=== PATIENT | male | born 1975 | race Caucasian/White ===

== ENCOUNTER 2018-05-01 05:51 | Emergency (ER) | payer OTHER | END 2018-05-01 07:18 | disposition home or self-care (01) | LOC: FTE 05:51 | DX: H60.91 Unspecified otitis externa, right ear (principal); R10.9 Unspecified abdominal pain; F17.210 Nicotine dependence, cigarettes, uncomplicated; Z79.82 Long term (current) use of aspirin | CPT/HCPCS: 99283; Z7502 ==

== ENCOUNTER 2018-05-02 09:15 | Emergency (ER) | payer OTHER ==
[2018-05-02] MEDS: KETOROLAC 30 MG INJ IM (10:13)
== END 2018-05-02 11:25 | disposition home or self-care (01) ==
LOC: FTE 09:15
DX: H60.501 Unspecified acute noninfective otitis externa, right ear (principal); Z79.82 Long term (current) use of aspirin
CPT/HCPCS: 96372; 99284-25

== ENCOUNTER 2018-09-27 18:28 | Emergency (ER) | payer SELFPAY, OTHER ==
[2018-09-27] MEDS ORDERED: BACITRACIN 0.9 GM OINT (23:05)
== END 2018-09-27 19:15 | disposition left against medical advice (07) ==
LOC: FTE 19:15
DX: Z53.21 Procedure and treatment not carried out due to patient leaving prior to being seen by health care provider (principal)

== ENCOUNTER 2018-11-02 19:19 | Emergency (ER) | payer OTHER | END 2018-11-03 02:18 | disposition home or self-care (01) | LOC: FTE 19:19 | DX: H60.501 Unspecified acute noninfective otitis externa, right ear (principal); Z79.82 Long term (current) use of aspirin | CPT/HCPCS: 99283 ==

== ENCOUNTER 2019-06-01 17:36 | Emergency (ER) | payer OTHER ==
[2019-06-01] MEDS: ONDANSETRON (ODT) 4 MG TAB ODT (18:08)
[2019-06-01] MEDS: HYDROCODONE/APAP (10/325) TAB PO (18:09)
== END 2019-06-01 19:44 | disposition home or self-care (01) ==
LOC: E/R 17:36
DX: M54.12 Radiculopathy, cervical region (principal); Z79.82 Long term (current) use of aspirin
CPT/HCPCS: 72040; 99283-25